=== PATIENT | female | born 1985 | race Caucasian/White ===

== ENCOUNTER 2016-12-28 20:54 | Emergency (ER) | payer SELFPAY ==
[~2016-12-28] VITALS: Ht 167.6 cm; Wt 99.2 kg
[~2016-12-28 20:54] MED LIST: HYDR25CA PO; NONE PER PT; OXYC1TAB9 PO
[2016-12-28] MEDS ORDERED: OXYcodone/APAP 5/325MG TABLET PO ONE (22:00)
[2016-12-28] MEDS ORDERED: ONDANSETRON ODT 4 MG PO ONE (22:00)
[2016-12-28] MEDS ORDERED: OXYcodone/APAP 5/325MG TABLET ONE (22:13)
[2016-12-28] MEDS ORDERED: ONDANSETRON ODT 4 MG ONE (22:13)
[2016-12-28] MEDS ORDERED: LIDOCAINE 1%, 20ML ONE (22:31)
[2016-12-28 23:16] VITALS: BP 102/65
== END 2016-12-28 23:48 | disposition home or self-care (01) ==
LOC: ED 22:09
DX: N75.1 Abscess of Bartholin's gland (principal)
CPT/HCPCS: 56420; 99283; Q0162